=== PATIENT | male | born 1960 | race Caucasian/White ===

== ENCOUNTER 2018-12-08 12:28 | Day surgery (SDC) | payer OTHER ==
[2018-12-07 17:03] VITALS: BMI 29.2
[2018-12-08] MEDS ORDERED: Gadobenate Dimeglumine 529 MG/1 ML (20ML VIAL) ONE (15:13)
[2018-12-08] MEDS ORDERED: Lidocaine 1% PF 5 ML VIAL ONE (16:48)
[2018-12-08] MEDS ORDERED: PROPOFOL 200 MG/20 ML VIAL ONE (16:48)
--- NOTE | 2018-12-08 18:10 | MRI ---
MRI LUMBAR SPINE WITH AND WITHOUT CONTRAST: 12/08/18 HISTORY: Radiculopathy. Symptoms are acute. Previous surgery. Back pain with radiculopathy in the left leg. COMPARISON: None. TECHNIQUE: Lumbar spine MRI is performed with and without intravenous gadolinium administration. Multisequential , multiplanar imaging is performed. FINDINGS: Appropriate T1 narrow signal intensity of the lumbar vertebrae. Lumbar spine vertebral body height is maintained. There is no fracture. There is straightening of the normal lumbar lordosis. 2 mm of retr olisthesis of L1 upon L2. 1.3 mm of anterolisthesis of L2 upon L3. There is appropriate signal intensity of the paraspinal muscles. Appropriate signal intensity of the visualized solid organs. Conus medullaris terminates at the mid L1 level. T12-L1: Desiccation with moderate loss of disc space height. Generalized disc bulge with a small cent ral inferior disc extrusion. Mild central canal stenosis. Moderate bilateral neural foraminal narrow ing. L2-L3: Laminectomy defect. No significant enhancing scar tissue at the postoperative site. There is s ome enhancing scar tissue along the posterior margin of the disc. Posterior element hypertrophy is no gabi. There is mild to moderate central canal stenosis. Right neural foramen is mildly narrowed. Left neural foramen is patent. L3-L4: Broad based disc bulge does not cause any significant stenosis of the thecal sac. Mild right a nd left foraminal narrowing. L4-L5: There is a broad based disc bulge with a left subarticular disc extrusion. There is mild steno sis of the thecal sac. There is mass effect and partial obscuration of the traversing left L5 nerve r oot. Moderate to severe right and moderate left foraminal narrowing. L5-S1: Severe loss of disc space height. Disc material abuts but does not obscure either traversing S 1 nerve root. No significant stenosis of the thecal sac. Moderate to severe bilateral foraminal narro wing. On the postcontrast images there is no abnormal enhancement within the thecal sac including the cauda equina and conus medullaris. IMPRESSION: 1. Laminectomy changes at L2-L3. There is enhancement of scar tissue along the posterior margin of the disc. 2. Varying degrees of central canal stenosis and foraminal narrowing as described above. POS: OFF
== END 2018-12-08 17:20 | disposition home or self-care (01) ==
LOC: SDC/OP 12:28
PROVIDERS: ATTEND Neurological Surgery
DX: M54.16 Radiculopathy, lumbar region (principal); M48.061 Spinal stenosis, lumbar region without neurogenic claudication; E11.9 Type 2 diabetes mellitus without complications; F17.200 Nicotine dependence, unspecified, uncomplicated; Z79.84 Long term (current) use of oral hypoglycemic drugs; Z98.890 Other specified postprocedural states
CPT/HCPCS: 72158; 82565

== ENCOUNTER 2019-01-29 08:43 | Observation (INO) | payer OTHER ==
[2019-01-26 10:07] VITALS: BMI 28.5
[2019-01-29 09:42] LABS: #Basophils 0.1 thou/uL (0.0-0.2); #Eosinphils 0.3 thou/uL (0.0-0.7); #Lymphocytes 2.3 thou/uL (1.20-3.40); #Monocytes 0.6 thou/uL (0.11-0.59); #Neutrophils 4.5 thou/uL (1.40-6.50); %Basophils 0.9 % (0.0-1.0); %Lymphocytes 29.4 % (21.0-51.0); %Monocytes 7.6 % (0.0-10.0); %Neutrophils 58.2 % (42.0-75.0); Hemoglobin 13.7 g/dL (14.0-18.0); Mean Corpuscular HGB CONC 35.6 g/dL (32.0-36.0); Mean Corpuscular Hemoglobin 32.4 pg (27.0-31.0); Mean Platelet Volume 6.5 fL (7.4-10.4); Platelet Count 166 thou/uL (130-400); RBC Distribution Width 11.6 % (11.5-14.5); Red Blood Cell (RBC) Count 4.24 mill/uL (4.70-6.10); White Blood Cell (WBC) Count 7.7 thou/uL (4.8-10.8)
[2019-01-29 10:03] LABS: Anion Gap 9 mmol/L (10-20); BUN (Urea Nitrogen) 25 mg/dL (8.4-25.7); Calc. Creatinine Clearance 130 mL/min (70-130); Carbon Dioxide 26 mmol/L (22-29); Chloride 105 mmol/L (98-107); Estimated GFR-MDRD 84; Glucose 122 mg/dL (70-105); Sodium 136 mmol/L (136-145)
[2019-01-29] MEDS ORDERED: Fentanyl 100 MCG/2 ML VIAL ONE ×3 (10:25→12:47)
[2019-01-29] MEDS ORDERED: Midazolam HCl 2 mg/2 ml Vial ONE (10:29)
[2019-01-29] MEDS ORDERED: HYDROmorphone 2 MG/ML VIAL ONE (10:34)
[2019-01-29] MEDS ORDERED: Promethazine HCl 25 MG/ML VIAL SLOW IVP PRN (12:08)
[2019-01-29] MEDS ORDERED: Ondansetron HCl/PF 4 MG/2 ML Vial IVP PRN (12:08)
[2019-01-29] MEDS ORDERED: Promethazine HCl 25 MG/ML VIAL IM PRN ×2 (12:08→15:30)
--- NOTE | 2019-01-29 13:39 | OP ---
DATE OF PROCEDURE: 01/29/2019 DESIGN ASSEMBLER: Eliud. PROCEDURE PERFORMED: L3 through L5 laminectomy. DESCRIPTION OF PROCEDURE: The patient was brought to the operating room and intubated. He was rolled in a prone position on gel-filled chest rolls. An incision was made exposing L3 through L5, and the level was confirmed by x-ray. We performed a central and left-sided L3-L4 and L4-L5 laminectomies. After complete decompression was achieved, I explored the disk spaces, and found no meaningful disk herniation at L3-L4, but did find chronic calcified bone spur disk formation at L4-L5. Complete decompression was achieved. The wound was then extensively irrigated. MAC hemostasis was secured. Vancomycin powder was applied and the wound was closed in anatomic layers. Job ID: [id number]
[2019-01-29] MEDS ORDERED: traMADol HCl 50 MG TAB PO PRN ×2 (15:30)
[2019-01-29] MEDS ORDERED: HYDROcodone/Acetaminophen 10/325 mg Tablet PO PRN ×2 (15:30)
[2019-01-29] MEDS ORDERED: diphenhydrAMINE 25 MG CAP PO PRN (15:30)
[2019-01-29] MEDS ORDERED: Promethazine HCl 12.5 MG SUPP PR PRN (15:30)
[2019-01-29] MEDS ORDERED: Promethazine 25 MG TAB PO PRN (15:30)
[2019-01-29] MEDS ORDERED: tiZANidine HCl 4 MG TAB PO PRN (15:30)
[2019-01-29] MEDS ORDERED: Mag-Al 1200 mg/1200 mg/30 ML UDCUP PO PRN (15:30)
[2019-01-29] MEDS ORDERED: diphenhydrAMINE 50 MG/ML VIAL IVP PRN (15:30)
[2019-01-29] MEDS ORDERED: Milk Of Magnesia 30 ML UDCUP PO PRN (15:30)
[2019-01-29] MEDS ORDERED: Ondansetron PF 4 MG/2 ML Vial IM PRN (15:30)
[2019-01-29] MEDS ORDERED: Morphine 2 MG/ML SYRINGE SLOW IVP PRN (15:32)
[2019-01-29] MEDS: Morphine 4 MG/ML VIAL SLOW IVP PRN ×4 (15:43→23:24)
[2019-01-29] MEDS ORDERED: Lidocaine 1% PF 5 ML VIAL ONE (15:51)
[2019-01-29] MEDS ORDERED: Ondansetron PF 4 MG/2 ML Vial ONE (15:51)
[2019-01-29] MEDS ORDERED: Ketorolac Tromethamine 30 MG/ML VIAL ONE (15:51)
[2019-01-29] MEDS ORDERED: ePHEDrine 50 MG/ML VIAL ONE (15:51)
[2019-01-29] MEDS ORDERED: Rocuronium Bromide 10 MG/ML (10ML VIAL) ONE (15:51)
[2019-01-29] MEDS ORDERED: PROPOFOL 200 MG/20 ML VIAL ONE (15:51)
[2019-01-29] MEDS ORDERED: Glycopyrrolate 0.2 MG/ML 5 ML SYRINGE ONE (15:51)
--- NOTE | 2019-01-29 17:23 | EKG ---
Test Reason : PREOP Blood Pressure : / mmHG Vent. Rate : 074 BPM Atrial Rate : 074 BPM P-R Int : 212 ms QRS Dur : 102 ms QT Int : 398 ms P-R-T Axes : 026 036 030 degrees QTc Int : 441 ms Sinus rhythm with 1st degree A-V block Otherwise normal ECG No previous ECGs available Confirmed by JADE DONOVAN, DR. Florentino ([id number]) on 01/29/2019 5:23:20 PM Referred By: ANGIE Confirmed By:DR. Chadd HANSEN MD
[2019-01-29] MEDS: Sodium Chloride 0.9% 1,000 ML IV SCH (18:07)
[2019-01-29] MEDS: CEFAZOLIN 2 GM in Premix Bag 1 BAG IVPB SCH (18:08)
[2019-01-29] MEDS: Pregabalin 75 MG CAP PO SCH (21:25)
[2019-01-30] MEDS: CEFAZOLIN 2 GM in Premix Bag 1 BAG IVPB SCH (01:28)
[2019-01-30] MEDS: Morphine 4 MG/ML VIAL SLOW IVP PRN ×3 (01:28→06:48)
[2019-01-30] MEDS: Sodium Chloride 0.9% 1,000 ML IV SCH (04:30)
[2019-01-30] MEDS ORDERED: CEFAZOLIN 2 GM in Premix Bag 1 BAG IVPB SCH (08:00)
[2019-01-30] MEDS ORDERED: VICTOZA INJ SC SCH (09:00)
[2019-01-30] MEDS: Pregabalin 75 MG CAP PO SCH (09:26)
[2019-01-30 12:49] VITALS: BP 127/72; TEMP 97.6
--- NOTE | 2019-01-30 14:50 | DIS ---
DATE OF ADMISSION: 01/29/2019 DATE OF DISCHARGE: 01/30/2019 HOSPITAL COURSE: The patient is a 58-year-old male who underwent a L4-L5 and L3-L4 laminectomy and discectomy on 01/29/2019. RUSLAN drain was placed intraoperatively. Following the surgery, the patient was transitioned to the Med/Surg floor, where his pain has been controlled with p.r.n. IV morphine. He has been tolerating a regular diet, and he has been voiding appropriately. RUSLAN had 60 mL out overnight. The patient is ambulating up and back and forth to the bathroom without any difficulty. On exam this morning, he has free active range of motion of all extremities. No focal motor weakness. No reflex asymmetry. His dressing has a small amount of shadowing, but no active drainage is appreciated. We will plan to have RUSLAN drain removed this morning and dismiss the patient to home. I have provided him Tylenol No. 3 and Zanaflex for pain. I discussed home care and precautions. We will follow up in 2 weeks. Job ID: [id number]
== END 2019-01-30 12:30 | disposition home or self-care (01) ==
LOC: SDC 08:43 → SURG A 12:10
PROVIDERS: ADMIT Neurological Surgery; ATTEND Neurological Surgery
PROC: 01NB0ZZ Release Lumbar Nerve, Open Approach (ICD-10-PCS; principal; 2019-01-29)
DX: M51.16 Intervertebral disc disorders with radiculopathy, lumbar region (principal); M48.061 Spinal stenosis, lumbar region without neurogenic claudication; M25.78 Osteophyte, vertebrae
CPT/HCPCS: 36415; 76000; 80048; 85025; 93005; 93010; 96361; 96365; 96366; 96372; 96375; 96376; G0378; J0690; J1170; J1885; J2001; J2250; J2270; J2405; J2704; J3010; J3490